=== PATIENT | male | born 1995 | race Caucasian/White ===

== ENCOUNTER 2022-02-21 14:54 | Emergency (ER) | payer OTHER ==
--- NOTE | 2022-02-21 15:40 | ED Physician Documentation ---
History of Present Illness - Stated complaint Stated Complaint: ABD PX - Chief complaint Chief Complaint: Abd Pain - Additonal information Additional information: 26-year-old otherwise healthy male presents emergency department for evaluation of unresolved right lower quadrant abdominal pain. Symptoms began yesterday in the a.m. He did go to the [facility] walk-in clinic. Patient reports that while there he had reported periumbilical pain with radiation to the right lower quadrant. There was some concern for possible appendicitis. The patient was advised that if his symptoms did not improve to come to the ER. Overnight he has had no vomiting but the symptoms have not abated thus he presents here. He does have tactile fevers at home. Some nausea but no vomiting. No diarrhea. No urinary symptoms. No pertinent past surgical history. Review of Systems Constitutional: reports: Fever Eyes: reports: Reviewed and negative Nose: reports: Reviewed and negative Cardiac: reports: Reviewed and negative Respiratory: reports: Reviewed and negative GI: reports: Abdominal Pain, Nausea. denies: Vomiting, Constipation, Diarrhea : reports: Reviewed and negative Skin: reports: Reviewed and negative Musculoskeletal: reports: Reviewed and negative PD PAST MEDICAL HISTORY - Allergies Allergies/Adverse Reactions: Allergies Allergy/AdvReac Type Severity Reaction Status Date / Time No Known Drug Allergies Allergy Verified 02/21/22 15:13 PD ED PE NORMAL - General General: Alert and oriented X 3, No acute distress, Well developed/nourished - HEENT HEENT: Atraumatic, Moist mucous membranes, Pharynx benign - Cardiac Cardiac: RRR, No murmur - Respiratory Respiratory: No respiratory distress, Clear bilaterally - Abdomen Abdomen: Normal bowel sounds, Soft. No: Non tender ( Tenderness palpation right lower quadrant of the abdomen. No guarding or rebound. Negative psoas.) - Back Back: No CVA TTP - Derm Derm: Normal color, Warm and dry - Extremities Extremities: No deformity, No tenderness to palpate, Normal ROM s pain - Neuro Neuro: Alert and oriented X 3, account services associate 2-12 intact Eye Opening: Spontaneous Motor: Obeys Commands Verbal: Oriented GCS Score: 15 Results - Vitals Vitals: Vital Signs - 24 hr 02/21/22 02/21/22 15:09 15:13 Temperature 36.6 C 36.6 C Heart Rate 94 94 Respiratory 16 16 Rate Blood Pressure 138/78 H 138/78 H O2 Saturation 98 98 Oxygen O2 Source Room air - Labs Labs: Laboratory Tests 02/21/22 02/21/22 02/21/22 15:38 16:00 16:02 WBC 4.8 RBC 4.87 Hgb 14.4 Hct 41.5 L MCV 85.2 MCH 29.6 MCHC 34.7 RDW 11.6 L Plt Count 159 MPV 9.7 Neut # (Auto) 3.2 Lymph # (Auto) 0.9 L Isabela # (Auto) 0.6 Eos # (Auto) 0.1 Baso # (Auto) 0.0 Absolute Nucleated RBC 0.00 Nucleated RBC % 0.0 Sodium Potassium Chloride Carbon Dioxide Anion Gap BUN Creatinine Estimated GFR (MDRD) Glucose Calcium Total Bilirubin AST ALT Alkaline Phosphatase Total Protein Albumin Globulin Albumin/Globulin Ratio Lipase Urine Color YELLOW Urine Clarity CLEAR Urine pH 6.0 Ur Specific [place] 1.025 Urine Protein NEGATIVE Urine Glucose (UA) NEGATIVE Urine Ketones NEGATIVE Urine Occult Blood NEGATIVE Urine Nitrite NEGATIVE Urine Bilirubin NEGATIVE Urine Urobilinogen 0.2 (NORMAL) Ur Leukocyte Esterase NEGATIVE Ur Microscopic Review NOT INDICATED Urine Culture Comments NOT INDICATED SARS-CoV-2 (PCR) NOT DETECTED 02/21/22 16:02 WBC RBC Hgb Hct MCV MCH MCHC RDW Plt Count MPV Neut # (Auto) Lymph # (Auto) Isabela # (Auto) Eos # (Auto) Baso # (Auto) Absolute Nucleated RBC Nucleated RBC % Sodium 139 Potassium 3.8 Chloride 103 Carbon Dioxide 26 Anion Gap 10.0 BUN 26 H Creatinine 1.1 Estimated GFR (MDRD) 80 L Glucose 113 H Calcium 9.6 Total Bilirubin 2.2 H AST 65 H ALT 84 H Alkaline Phosphatase 68 Total Protein 7.3 Albumin 4.3 Globulin 3.0 Albumin/Globulin Ratio 1.4 Lipase 44 Urine Color Urine Clarity Urine pH Ur Specific [place] Urine Protein Urine Glucose (UA) Urine Ketones Urine Occult Blood Urine Nitrite Urine Bilirubin Urine Urobilinogen Ur Leukocyte Esterase Ur Microscopic Review Urine Culture Comments SARS-CoV-2 (PCR) - Rads (name of study) CT abd w/o Radiology: Final report received (The appendix measures up to 8 to 9 mm. Mild surrounding inflammatory change. Findings are most compatible with early appendicitis) PD MEDICAL DECISION MAKING - ED course Complexity details: considered differential, d/w patient ED course: Well-appearing 26-year-old male presents emergency department for evaluation of 2 days right lower quadrant abdominal pain. He has no guarding or rebound. Screening labs are unremarkable. However the CT scan does show likely early appendicitis. No findings to suggest acute obstruction or perforation. Patient was started on Zosyn. Unfortunately we do not have surgical capability here at [facility] this weekend. Thus we will start the process of looking for appropriate transfer facility for surgical services [id number]: I spoke with Dr. Celis general surgeon on-call at [facility]. He has agreed to accept the patient in direct admit for further evaluation and management of his acute appendicitis. I have also spoken with [facility] superintendent house Umair who is aware that the patient has been accepted for direct admission. Patient will be transferred via BLS. Appropriate COBRA pap erwork completed. Departure - Departure Disposition: 02 Transfer Acute Care Hosp Clinical Impression: Acute appendicitis Qualifiers: Acute appendicitis type: unspecified acute appendicitis type Qualified Code(s): K35.80 - Unspecified acute appendicitis
[2022-02-21 15:43] LABS: BILIRUBIN,URINE NEGATIVE (NEGATIVE); GLUCOSE, URINE (UA) NEGATIVE (NEGATIVE); KETONES,URINE (UA) NEGATIVE (NEGATIVE); LEUKOCYTE ESTERASE, URINE NEGATIVE (NEGATIVE); NITRITE,URINE NEGATIVE (NEGATIVE); OCCULT BLOOD,URINE NEGATIVE (NEGATIVE); PROTEIN,URINE NEGATIVE (NEGATIVE); UROBILINOGEN,URINE 0.2 (NORMAL) E.U./dL (NORMAL)
[2022-02-21 15:47] LABS: CLARITY,URINE CLEAR (CLEAR)
--- NOTE | 2022-02-21 16:02 | CT Report ---
PROCEDURE: Abdomen/Pelvis WO INDICATIONS: RLQ abd pain; ? appy? TECHNIQUE: Noncontrast 5 mm thick sections acquired from the diaphragms to the symphysis. 5 mm coronal and sagi ttal reformats were then performed. For radiation dose reduction, the following was used: automated exposure control, adjustment of mA and/or kV according to patient size. COMPARISON: None. FINDINGS: Image quality: Excellent. ABDOMEN: Lung bases: Lung bases are clear. Heart size is normal. Solid organs: Liver and spleen are normal in size. Gallbladder is largely collapsed at the time of this study. Pancreas is normal in contours. No adrenal nodules. Kidneys are normal in size, withou t hydronephrosis or nephrolithiasis. Peritoneum and bowel: In this patient with this given history, scrutiny is given to the appendix. Th e appendix is seen inferior to the cecum and measures up to 8 to 9 mm, as on series 6 image 23. Mild surrounding inflammatory change can be seen. No findings of perforation or abscess are seen. No dilated loops of small bowel are seen. No significant colonic abnormality can be seen. No significant gastric abnormality is seen. Nodes and vessels: No retroperitoneal or mesenteric adenopathy by size criteria. Aorta and inferior vena cava are normal in caliber. Miscellaneous: No ventral hernias. PELVIS: Genitourinary: Bladder wall thickness is normal. Miscellaneous: No inguinal hernias or adenopathy. Bones: No suspicious bony lesions. No vertebral body compression fractures. IMPRESSION: These imaging findings are most compatible with early appendicitis. No findings of perforation or abscess can be seen. Reviewed by: Nicola Martinez MD on 02/21/2022 3:01 PM ANA Approved by: Nicola Martinez MD on 02/21/2022 3:01 PM ANA Station ID: [id number]
[2022-02-21] MEDS ORDERED: PIPERACILLIN/TAZOBACTAM 3.375 GM in SODIUM CHLORIDE 0.9% MINIBAG 100 ML IV STA (16:05)
[2022-02-21 16:07] LABS: BASOPHILS % (AUTO) 0.6 %; EOSINOPHILS # (AUTO) 0.1 10^3/uL (0.0-0.7); EOSINOPHILS % (AUTO) 1.5 %; HCT - HEMATOCRIT 41.5 % (42.0-52.0); HGB - HEMOGLOBIN 14.4 g/dL (14.0-18.0); LYMPHOCYTES # (AUTO) 0.9 10^3/uL (1.5-3.5); LYMPHOCYTES % (AUTO) 19.4 %; MEAN CORPUSCULAR HEMOGLOBIN 29.6 pg (27.0-31.0); MEAN CORPUSCULAR HGB CONC 34.7 g/dL (32.0-36.0); MEAN CORPUSCULAR VOLUME 85.2 fL (80.0-94.0); MEAN PLATELET VOLUME 9.7 fL (7.4-11.4); MONOCYTES # (AUTO) 0.6 10^3/uL (0.0-1.0); MONOCYTES % (AUTO) 11.6 %; NEUTROPHILS # (AUTO) 3.2 10^3/uL (1.5-6.6); NEUTROPHILS % (AUTO) 66.7 %; PLT - PLATELET COUNT 159 10^3/uL (130-450); RED BLOOD COUNT 4.87 10^6/uL (4.70-6.10); RED CELL DISTRIBUTION WIDTH 11.6 % (12.0-15.0); WHITE BLOOD COUNT 4.8 x10^3/uL (4.8-10.8)
[2022-02-21] MEDS ORDERED: SODIUM CHLORIDE 0.9% 1,000 ML IV STA (16:09)
[2022-02-21 16:20] LABS: ALBUMIN 4.3 g/dL (3.2-5.5); ALBUMIN/GLOBULIN RATIO 1.4 (1.0-2.2); BILIRUBIN,TOTAL 2.2 mg/dL (0.2-1.0); CALCIUM 9.6 mg/dL (8.5-10.3); CREATININE 1.1 mg/dL (0.6-1.2); POTASSIUM 3.8 mmol/L (3.5-5.0); TOTAL PROTEIN 7.3 g/dL (6.7-8.2)
[2022-02-21 17:19] VITALS: BP 117/66
== END 2022-02-21 18:43 | disposition short-term general hospital (02) ==
LOC: ED 14:54
DX: K35.80 Unspecified acute appendicitis (principal); Z20.822 Contact with and (suspected) exposure to COVID-19
CPT/HCPCS: 36415; 80053; 81001; 81003; 83690; 85025; 87086; 96365; 99283

== ENCOUNTER 2022-02-21 18:57 | Outpatient (CLI) | payer OTHER | END 2022-02-21 18:58 | disposition short-term general hospital (02) | LOC: EMS 18:57 | PROVIDERS: ATTEND Registered Nurse | DX: K35.80 Unspecified acute appendicitis (principal) | CPT/HCPCS: A0425; A0428 ==

== ENCOUNTER 2023-05-14 09:49 | Emergency (ER) | payer OTHER ==
[2023-05-14 10:04] VITALS: BP 132/71; O2SAT 100
[2023-05-14 10:14] LABS: RAPID STREP SCREEN Negative (Negative)
[2023-05-14 10:59] LABS: B. PARAPERTUSSIS- RESP PCR PAN NOT DETECTED; B. PERTUSSIS- RESP PCR PANEL NOT DETECTED; C. PNEUMONIAE- RESP PCR PANEL NOT DETECTED; CORONAVIRUS 229E-RESP PCR NOT DETECTED; CORONAVIRUS HKU1-RESP PCR NOT DETECTED; CORONAVIRUS NL63-RESP PCR NOT DETECTED; CORONAVIRUS OC43-RESP PCR NOT DETECTED; HUMAN METAPNEUMOVIRUS NOT DETECTED; INFLUENZA A- RESP PCR PANEL NOT DETECTED; INFLUENZA B - RESP PCR PANEL NOT DETECTED; M. PNEUMONIAE- RESP PCR PANEL NOT DETECTED; PARAINFLUENZA VIRUS 1 NOT DETECTED; PARAINFLUENZA VIRUS 2 NOT DETECTED; PARAINFLUENZA VIRUS 3 NOT DETECTED; PARAINFLUENZA VIRUS 4 NOT DETECTED; RHINOVIRUS/ENTEROVIRUS NOT DETECTED; RSV- RESP PCR PANEL NOT DETECTED; SARS-CoV-2 -RESP PCR PANEL NOT DETECTED
[2023-05-14] MEDS ORDERED: DEXAMETHASONE 10 MG/ML VIAL PO STA (11:51)
[2023-05-14] MEDS ORDERED: CHERRY SYRUP 10 ML UDC PO ONE (11:51)
--- NOTE | 2023-05-14 11:53 | ED Physician Documentation ---
PD HPI PED ILLNESS - Stated complaint Stated Complaint: SORE THROAT,SWELLING - Chief complaint Chief Complaint: Heent - History obtained from History obtained from: Patient (He has had a sore throat with low-grade fever since yesterday morning associate with cough felt like he was choking this morning.) PD PAST MEDICAL HISTORY - Past Medical History Past Medical History: No - Past Surgical History Past Surgical History: No - Present Medications Home Medications: Ambulatory Orders Medication Instructions Recorded Confirmed No Known Home Medications 05/14/23 05/14/23 - Allergies Allergies/Adverse Reactions: Allergies Allergy/AdvReac Type Severity Reaction Status Date / Time No Known Drug Allergies Allergy Verified 02/21/22 15:13 - Social History Does the pt smoke?: No Smoking Status: Never smoker PD ED PE NORMAL - Vitals Vital signs reviewed: Yes - General General: Alert and oriented X 3, No acute distress - HEENT HEENT: PERRL, EOMI, Other (Moderately laryngitic voice, mildly swollen tonsils but without exudates.) - Neck Neck: Supple, no meningeal sign, No bony TTP - Neuro Neuro: Alert and oriented X 3, Normal speech Results - Vitals Vitals: Vital Signs - 24 hr 05/14/23 09:51 Temperature 36.8 C Heart Rate 68 Respiratory 20 Rate Blood Pressure 132/71 H O2 Saturation 100 Oxygen O2 Source Room air - Labs Labs: Laboratory Tests 05/14/23 05/14/23 10:01 10:01 Nasal Adenovirus (PCR) NOT DETECTED Nasal B. parapertussis DNA (PCR) NOT DETECTED Nasal Coronavir 229E PCR NOT DETECTED Nasal Coronavir HKU1 PCR NOT DETECTED Nasal Coronavir NL63 PCR NOT DETECTED Nasal Coronavir OC43 PCR NOT DETECTED Nasal Enterovir/Rhinovir PCR NOT DETECTED Nasal Influenza B PCR NOT DETECTED Nasal Influenza A PCR NOT DETECTED Nasal Parainfluen 1 PCR NOT DETECTED Nasal Parainfluen 2 PCR NOT DETECTED Nasal Parainfluen 3 PCR NOT DETECTED Nasal Parainfluen 4 PCR NOT DETECTED Nasal RSV (PCR) NOT DETECTED Nasal B.pertussis DNA PCR NOT DETECTED Nasal C.pneumoniae (PCR) NOT DETECTED Greg Human Metapneumo PCR NOT DETECTED Nasal M.pneumoniae (PCR) NOT DETECTED Nasal SARS-CoV-2 (PCR) NOT DETECTED Group A Strep Rapid Negative PD Medical Decision Making - ED course ED course: 27-year-old gentleman with viral pharyngitis, resolved episode of feeling like he was choking this morning. Will p.o. challenge here prior to discharge and administer oral Decadron. Departure - Departure Disposition: 01 Home, Self Care Clinical Impression: Viral pharyngitis Condition: Good Record reviewed to determine appropriate education?: Yes Instructions: ED Pharyngitis Viral Report Pending Comments: Ibuprofen for pain, you can also continue NyQuil/DayQuil and consider Chloraseptic as well. Return if worse or if not better over the next few days. Rapid strep and COVID test were negative. We are performing a throat culture and if a bacterial isolate is identified we will call you in the next few days.
== END 2023-05-14 12:10 | disposition home or self-care (01) ==
LOC: ED 09:49
DX: J02.8 Acute pharyngitis due to other specified organisms (principal); Z20.822 Contact with and (suspected) exposure to COVID-19
CPT/HCPCS: 87070; 87430; 87633; 99283; A9270